=== PATIENT | male | born 1980 | race Caucasian/White ===

== ENCOUNTER 2024-04-18 07:27 | Emergency (ER) | payer BC ==
[2024-04-18 07:43] VITALS: BP 153/95; O2SAT 100
--- NOTE | 2024-04-18 07:52 | ED Physician Documentation ---
PD HPI UPPER EXT INJURY - Stated complaint Stated Complaint: RT WRIST INJ - Chief complaint Chief Complaint: Trauma Ext - History obtained from History obtained from: Patient - Additonal information Additional information: The patient comes to the emergency department chief complaint of right wrist pain after a fall while hiking yesterday. He states he had decided to try to take the short cut and ended up falling forward. He fell on his outstretched hands and noticed some right wrist pain immediately. He also hit his right chest Yousef pain in the ribs around the breast area. He denies any shortness of breath. He states it hurts to take a deep breath but he does not feel short of air. He has noticed some swelling and bruising of his right wrist and it hurts to try to move it to its full extent. No numbness or tingling in the fingers. No other injuries or complaints. PD PAST MEDICAL HISTORY - Past Medical History Past Medical History: No - Past Surgical History Past Surgical History: No - Present Medications Home Medications: Ambulatory Orders Medication Instructions Recorded Confirmed Dextroamphetamine/Amphetamine 15 mg PO BID 04/18/24 04/18/24 [Adderall 15 mg Tablet] Omeprazole 20 mg PO DAILY 04/18/24 04/18/24 - Allergies Allergies/Adverse Reactions: Allergies Allergy/AdvReac Type Severity Reaction Status Date / Time Penicillins Allergy Hives Verified 04/18/24 07:37 - Social History Does the pt smoke?: No Smoking Status: Never smoker Does the pt have substance abuse?: No - Immunizations Immunizations are current?: Yes - POLST Patient has POLST: No PD ED PE NORMAL - Vitals Vital signs reviewed: Yes - General General: Alert and oriented X 3, No acute distress, Well developed/nourished - HEENT HEENT: Atraumatic, EOMI, Moist mucous membranes - Neck Neck: Supple, no meningeal sign - Cardiac Cardiac: Strong equal pulses - Respiratory Respiratory: No respiratory distress, Clear bilaterally - Derm Derm: Warm and dry, No rash, Other (Some bruising of the flexor aspect of right wrist on the ulnar side. No bruising over chest wall.) - Extremities Extremities: No deformity, Other (Tenderness to palpation of right wrist over the ulnar aspect both dorsally and ventrally. No obvious deformity. Mild edema. Mildly limited range of motion secondary to pain and stiffness.) - Neuro Neuro: Alert and oriented X 3 - Psych Psych: Normal mood, Normal affect Results - Rads (name of study) R wrist XR Relevant Findings:: Final report received, See rad report (neg) PD Medical Decision Making - ED course Complexity details: reviewed results, re-evaluated patient, considered differential, d/w patient ED course: The patient did not feel that he needed or wanted to get an x-ray of his ribs. However, x-ray of the right wrist was ordered, and negative. The pt was given a velcro wrist brace. He was stable for d/c, and we have discussed symptomatic management at home, as well as the usual indications for return. Departure - Departure Disposition: Home, Self Care Clinical Impression: Right wrist sprain Qualifiers: Encounter type: initial encounter Qualified Code(s): S63.501A - Unspecified sprain of right wrist, initial encounter Contusion of rib on right side Qualifiers: Encounter type: initial encounter Qualified Code(s): S20.211A - Contusion of right front wall of thorax, initial encounter Condition: Stable Instructions: ED Sprain Wrist, ED Contusion Vs Minor Fx Rib Comments: Your x-ray looks good and has been read by the radiologist as negative. You have opted not to get an x-ray of your ribs, and it is true that there is no specific treatment for rib fractures even if present. You may take ibuprofen and Tylenol as needed to help with any pain you are having. You have been p rovided with a Velcro wrist splint for support and you may wear this as needed. Please follow-up with your primary doctor for further concerns. Forms: PCP List Discharge Date/Time: 04/18/24 08:40
--- NOTE | 2024-04-18 08:12 | XRAY Report ---
PROCEDURE: Wrist 3+V RT INDICATIONS: trauma TECHNIQUE: 3 views of the wrist were acquired. COMPARISON: None. FINDINGS: Bones: No fractures or dislocations. No suspicious bony lesions. Soft tissues: No suspicious soft tissue calcifications or masses. IMPRESSION: No acute bony abnormality. Reviewed by: Wilfredo Martins MD on 04/18/2024 8:11 AM PDT Approved by: Wilfredo Martins MD on 04/18/2024 8:11 AM PDT Station ID: [id number]
[2024-04-18] MEDS: IBUPROFEN 800 MG TABLET PO STA (08:35)
== END 2024-04-18 08:40 | disposition home or self-care (01) ==
LOC: ED 07:27
DX: S63.501A Unspecified sprain of right wrist, initial encounter (principal); S20.211A Contusion of right front wall of thorax, initial encounter; W01.0XXA Fall on same level from slipping, tripping and stumbling without subsequent striking against object, initial encounter; Y93.01 Activity, walking, marching and hiking; Y92.828 Other wilderness area as the place of occurrence of the external cause
CPT/HCPCS: 99283